=== PATIENT | male | born 1985 | race Caucasian/White ===

== ENCOUNTER 2020-09-04 22:11 | Emergency (ER) | payer SELFPAY ==
[~2020-09-04] VITALS: Ht 180.3 cm; Wt 77.0 kg
[2020-09-04] MEDS ORDERED: HYDROCODONE/ACETAMINOPHEN 5/325MG TABLET PO STA (23:24)
[2020-09-05] MEDS ORDERED: T3 PO (01:05)
[2020-09-05] MEDS ORDERED: IBUP-2029 MT (01:05)
[2020-09-05 01:25] VITALS: BP 121/69
== END 2020-09-05 01:47 | disposition home or self-care (01) ==
LOC: ER 22:11
DX: S16.1XXA Strain of muscle, fascia and tendon at neck level, initial encounter (principal); M79.672 Pain in left foot; V49.9XXA Car occupant (driver) (passenger) injured in unspecified traffic accident, initial encounter; Y93.89 Activity, other specified; Y92.89 Other specified places as the place of occurrence of the external cause; Y99.8 Other external cause status
CPT/HCPCS: 73630; 99284